=== PATIENT | female | born 1950 | race Caucasian/White ===

== ENCOUNTER 2024-03-08 16:24 | Emergency (ER) | payer BC, SELFPAY ==
[2024-03-08] VITALS (8 sets, daily range): BP systolic 141–193; BP diastolic 95–160; BMI 23.9
--- NOTE | 2024-03-08 16:51 | ED.GENMED ---
History of Present Illness
General
Chief Complaint: Heart Rate Problem
Source: patient
Exam Limitations: none
Time Seen by Provider: 03/08/24 16:35
Nursing documentation reviewed up to this point in time: agreed with except (Patient denies left arm pain ; pt reports swelling/intermittent discomfort in right arm not left )
History of Present Illness
History of Present Illness:
Patient is a 73-year-old female who presented to the ER for evaluation. Patient went to urgent care because she noticed her blood pressure has been elevated to the 130s over 90s 150s over 100s. While at urgent care she was found to be in A-fib and
sent to the ER. She had no complaints of chest pain or shortness of breath denied any palpitations however now she feels after being told that her heart rates elevated she feels some palpitations.
Patient does mention she had right arm pain 2 weeks ago without injury and then 2 to 3 days ago noticed some right hand swelling she reports that is only minimal now. Denies any injury.
She does not have a primary care doctor and does not go for routine checkups.
She is a non-smoker. She has been using Letty and Mucinex but believes there has been no decongestant in her medicine.
Review of Systems
Review of Systems
Allergies reviewed?: Yes
All Other Systems: ROS reviewed and negative except as documented in HPI and ROS
Constitutional: Reports no symptoms
Respiratory: Denies trouble breathing
Cardiac: Reports palpitations; Denies chest pain, diaphoresis or syncope
ABD/GI: Reports no symptoms
: Reports no symptoms
Musculoskeletal: Reports no symptoms
Skin: Reports no symptoms
Neurological: Reports no symptoms
Psychiatric: Reports no symptoms
Phy Exam
General Physical Exam
General Presentation: well appearing and no apparent distress
General Skin: warm
General Habitus: normal
General Mental: alert
General Hydration: appears well hydrated
Cardiovascular Exam
Cardiovascular Exam: irregularly irregular
Pulmonary Exam
Pulmonary Exam: lungs clear and no respiratory distress
Neurological Exam
Neurological Exam: alert and oriented x3
Musculoskeletal Exam
Musculoskeletal Exam: full ROM and other (No obvious swelling to Right upper extremity; full rom to b/l arms )
Skin Exam
Skin Exam: normal color and warm/dry
Psychiatric Exam
Psychiatric Exam: normal mood/affect
Course
Orders/Labs/Results
Orders:
Orders
03/08/24 16:25
Electrocardiogram (*1) Urgent
Reason for Study: Tachycardia
EKG- Treatment ONCE
03/08/24 16:46
Complete Blood Count/With Diff Urgent
Comprehensive Metabolic Panel Urgent
TSH Reflex To Free T4 Urgent
Comment: ADDON
03/08/24 16:50
Add On- LAB Urgent
Tests Added?: tsh w/ reflexive t4
0.9% Sodium Chloride 1000 ml [Nss] 1,000 ml IV BOLUS
Venous Doppler Upr Ext Right [US Periph Venous UPPER Ext RT] Urgent
Comment:
Reason For Exam: swelling/pain
03/08/24 16:57
Diltiazem 125 mg/125 ml Nss [Cardizem] 125 mg in 125 ml IV NOW
Initial dose in mg/hr, then titrate:: 5
Titrate to keep:: Heart rate 80-100 bpm
Titrate by mg/hr:: 5 mg/hr
Frequency of titrations (minutes):: 15
Maximum dose in mg/hr:: 15
Diltiazem HCl [Cardizem] 10 mg IV NOW STA
03/08/24 18:12
Electrocardiogram (*1) Stat
Reason for Study: Other
Other Reason for Exam: chest pain
EKG- Treatment ONCE
03/08/24 18:37
Diltiazem Extended Release [Cardizem Cd] 120 mg PO NOW STA
03/08/24 20:29
Apixaban [Eliquis] 5 mg PO NOW STA
Abnormal Lab Results
03/08/24
16:46
Hct 47.9 H %
(37.0-47.0)
Absolute Monos (auto) 0.7 H 10^3/uL
(0.1-0.6)
BUN 18 H mg/dl
(7-17)
Glucose 138 H mg/dl
(70-99)
Total Bilirubin 1.4 H mg/dl
(0.2-1.3)
03/08/24 16:46
03/08/24 16:46
Vital Signs
Initial and Last Documented VS:
Initial Vital Signs
Temp Pulse Resp BP Pulse Ox
98.1 F 163 15 186/150 100
03/08/24 16:30 03/08/24 16:30 03/08/24 16:30 03/08/24 16:30 03/08/24 16:30
Last Documented Vital Signs
Temp Pulse Resp BP Pulse Ox
98.1 F 104 20 146/108 96
03/08/24 16:30 03/08/24 20:15 03/08/24 20:15 03/08/24 18:44 03/08/24 18:45
Mock Up Maker consulted with Physician
Mock Up Maker consulted with physician?: Yes
Name of Physician Consulted: DR Jaffe
MDM/Problems Addressed
MDM/Problems Addressed:
Patient is a 73-year-old female who presents to the ER for evaluation. Patient reports intermittent right arm pain for the past 2 weeks(she denies left arm pain as documented in triage) and numbness of intermittent swelling. She also notes her
blood pressure was elevated went to urgent care and was incidentally found to be in A-fib. She had no complaints of palpitations then however does feel mild palpitations now.
She denies any history of chest pain with shortness of breath with symptoms. no cardiac history .
On exam no obvious swelling to arm. Patient presents in rapid A-fib in the 160s however no acute distress. Denies any recent fever chills white count normal she has been taking allergy medication but denies any Sudafed decongestant and this
medication. Her chemistries and thyroid are normal.
Case discussed with ED physician.
patient was given IV Cardizem bolus and drip heart rate decreased into the 90s however remained in A-fib.
Pt has been in the 90s here in the ED.
Case reviewed with cardiology will start on Cardizem CD (first dose given here in the ER) along with Eliquis twice a day. I did review with cardiology office will reach out to her however I did review with patient to call the office if
she does not hear from the office.
*Critical Care Note
Total Time (30-74mins, 75-104mins- exclusive of procedures): Not Applicable
Patient Management
Discussion with other providers: General Practitioner (DR Pope )
ED Attending Note
-
Portions of this chart may have been created with voice recognition software.� Occasional wrong word or��sound alike� substitutions may have occurred due to the inherent limitations of voice recognition software.
Discharge Plan
Departure
Patient Disposition: Home (Routine Discharge)
Date of Disposition: 03/08/24
Time of Disposition: 20:29
Patient with high blood pressure during this ER visit?: Yes
Condition: Fair
Covid-19: Not Applicable
Discharge Problem:
Atrial fibrillation
Instructions: Atrial Fibrillation (DC), BLOOD PRESSURE
Prescriptions:
New
Eliquis 5 mg tablet
5 mg PO BID Qty: 60 0RF
diltiazem HCl [Cardizem CD] 120 mg capsule,extended release 24hr
120 mg PO DAILY Qty: 30 0RF
Referrals:
Jonh Alejandre DO [Family Provider] -
Sravani Pope DO [Active] -
Activity Restrictions/Additional Instructions:
As discussed you are found to be in atrial fibrillation here in the ER. 2 prescriptions were sent to your pharmacy: 1 is a blood thinner, Eliquis take 5 mg twice a day starting tomorrow. You were given the first dose here in the ER. The second
medication is for heart rate management. This is diltiazem, Cardizem CD 120 mg daily start tomorrow you were also given a dose here in the ER.
Please follow-up with cardiology. The office should reach out to you tomorrow if you do not hear from them please give them a call. Return if any worsening of symptoms of chest pain shortness of breath lightheaded dizziness palpitations or any
further concerns.
Interventions
Interventions:
*Risk Screen - Suicide Last Done: 03/08/24 16:30
*General Assessment Last Done: 03/08/24 18:15
*Neglect/Abuse Screening Last Done: 03/08/24 16:30
*ED COVID-19 Vaccine History Last Done: 03/08/24 18:15
*Nursing Disposition Last Done: 03/08/24 20:53
ED- Cardiac Assessment Last Done: 03/08/24 16:38
Discharge Date and Time
Discharge Date/Time: 03/08/24 20:53
Print Language: PALAUAN
[2024-03-08] MEDS: NSS 1000 IV (16:52)
[2024-03-08 17:07] LABS: % Basophils 0.5 % (0-2); % Eosinophils 0.9 % (0-6); % Immature Granulocytes 0.3 % (0-0.5); % Lymphocytes 37.4 % (20.5-51.1); % Monocytes 8.9 % (1.7-9.3); Absolute Eosinophils 0.1 10^3/uL (0-0.7); Absolute Monocytes 0.7 10^3/uL (0.1-0.6); Absolute Neutrophils 4.2 10^3/uL (1.4-6.5); Hematocrit 47.9 % (37.0-47.0); Mean Corp Hgb Conc. 33.4 g/dL (33.0-37.0); Mean Corpuscular Hgb 30.5 pg (27.0-31.0); Mean Corpuscular Volume 91.4 fL (81.0-99.0); Mean Platelet Volume 10.1 fL (7.4-10.4); Nucleated Red Blood Cells % 0 %; Platelet Count 257 10^3/uL (130-400); Red Blood Cell Count 5.24 10^6/uL (4.20-5.40); Red Cell Dist. Width 13.4 % (11.5-14.5)
[2024-03-08] MEDS: CARDIZEM 10 MG IV (17:07)
[2024-03-08] MEDS: CARDIZEM 125 IV (17:08)
[2024-03-08 17:12] LABS: ALT (SGPT) 19 U/L (0-35); AST (SGOT) 26 U/L (14-36); Albumin 4.7 g/dl (3.5-5.0); Alkaline Phosphatase 114 U/L (38-126); Blood Urea Nitrogen 18 mg/dl (7-17); Calcium 9.9 mg/dl (8.4-10.2); Carbon Dioxide 25 mmol/L (22-30); Chloride 100 mmol/L (98-107); Estimated Creatinine Clearance 65 ml/min; Glucose 138 mg/dl (70-99); Potassium 4.2 mmol/L (3.5-5.1); Sodium 139 mmol/L (135-145); Total Bilirubin 1.4 mg/dl (0.2-1.3); Total Protein 7.6 g/dl (6.3-8.2); eGFR > 60.00
[2024-03-08] MEDS: CARDIZEM CD 120 MG PO (18:44)
[2024-03-08 18:45] LABS: TSH Reflex To Free T4 2.14 uIU/ml (0.47-4.68)
[2024-03-08] MEDS: ELIQUIS 5 MG PO (20:48)
== END 2024-03-08 20:53 | disposition home or self-care (01) ==
LOC: EMR 16:24
PROVIDERS: EMERGENCY PHYSICIAN Emergency Medicine; FAMILY PHYSICIAN Family Medicine
DX: I48.91 Unspecified atrial fibrillation (principal); M79.601 Pain in right arm
CPT/HCPCS: 96374; 96376; 96361; 99284; 80053; 84443; 85025; 93005; 93971

== ENCOUNTER → 2024-03-15 06:31 | Outpatient (REF) | payer BC, SELFPAY ==
[2024-03-15 07:58] LABS: ALT (SGPT) 18 U/L (0-35); AST (SGOT) 25 U/L (14-36); Albumin 4.5 g/dl (3.5-5.0); Alkaline Phosphatase 105 U/L (38-126); Blood Urea Nitrogen 25 mg/dl (7-17); Calcium 10.2 mg/dl (8.4-10.2); Carbon Dioxide 31 mmol/L (22-30); Chloride 99 mmol/L (98-107); Glucose 133 mg/dl (70-99); HDL Cholesterol 66 mg/dl; LDL Cholesterol, Calculated 80 mg/dl; Potassium 5.7 mmol/L (3.5-5.1); Sodium 139 mmol/L (135-145); Total Cholesterol 160 mg/dl (50-199); Total Protein 7.2 g/dl (6.3-8.2); Triglyceride 74 mg/dl (10-149); Very Low Density Lipoprotein 14 mg/dl (0-30); eGFR > 60.00
[2024-03-15 09:09] LABS: Glycohemoglobin (HgbA1c) 6.5 % (4.0-5.6)
== END ==
LOC: REG 06:31
PROVIDERS: ATTENDING PHYSICIAN Internal Medicine Interventional Cardiology; FAMILY PHYSICIAN Family Medicine
DX: I48.91 Unspecified atrial fibrillation (principal); R79.9 Abnormal finding of blood chemistry, unspecified; R03.0 Elevated blood-pressure reading, without diagnosis of hypertension
CPT/HCPCS: 36415; 80053; 80061; 83036

== ENCOUNTER 2024-03-20 07:37 | Day surgery (SDC) | payer BC, SELFPAY ==
--- NOTE | 2024-03-20 10:20 | ITS.CL.CARDI ---
Plastic Press Operator - Cardioversion
Cardioversion
Procedure Report:
Procedure: VADIM-guided electrical cardioversion
Pre-operative diagnosis: Persistent atrial fibrillation
Post-operative diagnosis: Persistent atrial fibrillation status post DC cardioversion to sinus rhythm
Anesthesia: MAC
Attending Physician: Leo Cuevas MD
Procedure Description: The patient was brought to the electrophysiology laboratory in the fasting state. Informed consent was obtained from the patient prior to the start of the procedure. Adherence to anticoagulation was confirmed. Electrodes were
placed on the patient and connected to an external defibrillator. Monitoring of blood pressure, ECG tracings, and pulse oximetry was initiated. The pads were applied to the patient in the anterior and posterior positions. The patient was sedated by
the anesthesiologist. A VADIM (reported separately) was performed prior to the cardioversion. No left atrial or left atrial appendage thrombus was seen. After the VADIM probe was removed, a 200 joule biphasic synchronized shock was delivered to the
patient under MAC anesthesia. Sinus rhythm was successfully restored. The patient recovered uneventfully from MAC anesthesia. There were no immediate post-procedure complications. The patient left the lab in good condition. The attending physician
was present throughout the entire procedure.
Impression: Successful VADIM-guided direct current cardioversion with buddhist of sinus rhythm after one 200 joule biphasic synchronized shock.
== END 2024-03-20 11:16 | disposition home or self-care (01) ==
LOC: CATH 07:37
PROVIDERS: ATTENDING PHYSICIAN Nuclear Medicine Nuclear Cardiology; FAMILY PHYSICIAN Family Medicine; OTHER PHYSICIAN Internal Medicine Interventional Cardiology
DX: I48.19 Other persistent atrial fibrillation (principal); I08.3 Combined rheumatic disorders of mitral, aortic and tricuspid valves; Z87.891 Personal history of nicotine dependence; Z79.01 Long term (current) use of anticoagulants
CPT/HCPCS: 93312; 93320; 93325; 92960; 93005

== ENCOUNTER → 2024-04-02 07:35 | Outpatient (REF) | payer BC, SELFPAY | LOC: RAD 07:35 | PROVIDERS: ATTENDING PHYSICIAN Physician Assistant; FAMILY PHYSICIAN Family Medicine | DX: R05.3 Chronic cough (principal) | CPT/HCPCS: 71046 ==

== ENCOUNTER → 2024-06-14 07:45 | Outpatient (REF) | payer BC, SELFPAY ==
[2024-06-14 09:55] LABS: % Basophils 0.6 % (0-2); % Eosinophils 1.6 % (0-6); % Immature Granulocytes 0.2 % (0-0.5); % Lymphocytes 28.4 % (20.5-51.1); % Monocytes 9.3 % (1.7-9.3); % Neutrophils 59.9 % (42.2-75.2); Absolute Eosinophils 0.1 10^3/uL (0-0.7); Absolute Lymphocytes 1.8 10^3/uL (1.2-3.4); Absolute Monocytes 0.6 10^3/uL (0.1-0.6); Absolute Neutrophils 3.8 10^3/uL (1.4-6.5); Hemoglobin 14.3 g/dL (12.0-16.0); Mean Corp Hgb Conc. 33.3 g/dL (33.0-37.0); Mean Corpuscular Hgb 30.4 pg (27.0-31.0); Mean Corpuscular Volume 91.5 fL (81.0-99.0); Mean Platelet Volume 10.4 fL (7.4-10.4); Nucleated Red Blood Cells % 0 %; Platelet Count 243 10^3/uL (130-400); Red Cell Dist. Width 12.6 % (11.5-14.5); White Blood Cell Count 6.3 10^3/uL (4.8-10.8)
== END ==
LOC: RCS 07:45
PROVIDERS: ATTENDING PHYSICIAN Internal Medicine Cardiovascular Disease; FAMILY PHYSICIAN Internal Medicine Interventional Cardiology
DX: I48.19 Other persistent atrial fibrillation (principal); Z01.818 Encounter for other preprocedural examination
CPT/HCPCS: 36415; 85025; 93306

== ENCOUNTER → 2024-07-10 07:48 | Outpatient (REF) | payer BC, SELFPAY | LOC: PET 07:48 | PROVIDERS: ATTENDING PHYSICIAN Nurse Practitioner Adult Health | DX: I48.91 Unspecified atrial fibrillation (principal) | CPT/HCPCS: 78431; A9555; J2785 ==